=== PATIENT | male | born 1955 | race Caucasian/White ===

== ENCOUNTER 2024-06-27 14:00 | Emergency (ER) | payer MEDICARE ==
[~2024-06-27 14:00] MED LIST: Iopamidol-370 76% 500 ML MDV (1 ML CHARGE) ONE
[2024-06-27 14:57] LABS: #Basophils 0.04 10x3/uL (0.0-0.2); %Basophils 0.4 % (0.0-1.0); %Eosinophils 2.1 % (0.0-10.0); %Lymphocytes 37.6 % (21.0-51.0); %Monocytes 7.9 % (0.0-10.0); %Neutrophils 51.6 % (42.0-75.0); Hematocrit 45.6 % (42.0-52.0); Mean Corpuscular HGB CONC 35.1 g/dL (32.0-36.0); Mean Corpuscular Hemoglobin 31.2 pg (27.0-31.0); Mean Corpuscular Volume 88.9 fL (78.0-98.0); Mean Platelet Volume 9.8 fL (7.4-10.4); Platelet Count 215 10x3/uL (130-400); RBC Distribution Width 14.2 % (11.5-14.5); Red Blood Cell (RBC) Count 5.13 mill/uL (4.70-6.10)
[2024-06-27 15:11] LABS: ALT (SGPT) 16 U/L (8-55); AST (SGOT) 18 U/L (5-34); Albumin 3.9 g/dL (3.4-4.8); Alkaline Phosphatase 44 U/L (40-110); Anion Gap 15 mmol/L (10-20); BUN (Urea Nitrogen) 16 mg/dL (8.4-25.7); Bilirubin, Total 0.6 mg/dL (0.2-1.2); Calc. Creatinine Clearance 0 mL/min (70-130); Calcium 9.8 mg/dL (7.8-10.44); Carbon Dioxide 23 mmol/L (23-31); Chloride 108 mmol/L (98-107); Estimated GFR 78; Glucose 137 mg/dL (83-110); Magnesium 1.7 mg/dL (1.6-2.6); Potassium 4.1 mmol/L (3.5-5.1); Protein, Total 6.9 g/dL (5.8-8.1); Sodium 142 mmol/L (136-145)
[2024-06-27 15:15] LABS: Troponin I Less than 0.010 ng/mL (< 0.028)
== END 2024-06-27 18:48 | disposition home or self-care (01) ==
LOC: ERS 14:00
DX: I47.19 Other supraventricular tachycardia (principal); F17.210 Nicotine dependence, cigarettes, uncomplicated
CPT/HCPCS: 71045; 71275; 82962; 83735; 83880; 84484; 85379; 93005; Q9967; 36415; 36416; 80053; 84443; 85025